=== PATIENT | male | born 1950 | race Caucasian/White ===

== ENCOUNTER 2019-11-15 13:02 | Inpatient (IN) | payer BC ==
[2019-11-15 13:14] VITALS: BMI 18.8
[2019-11-15] MEDS ORDERED: MECLIZINE HCL 25 MG TABLET (FP) PO ONE (14:18)
[2019-11-15] MEDS ORDERED: MECLIZINE HCL 12.5 MG TABLET ONE (14:24)
--- NOTE | 2019-11-15 14:31 | PDOC ---
History of Present Illness - General Chief Complaint: Chest Pain Stated Complaint: CHEST PAIN Time Seen by Provider: 11/15/19 13:32 - History of Present Illness Initial Comments: HPI Pt is a 69yo M with PMH HTN, HLD, DM, s/p L TKR who presents with chest pain and dizziness. Pt reports intermittent CP for years, with increasing episodes within the past month. Reports that episodes are triggered by emotion/stress and more recently with his knee pain. Pain is currently 3/10, intermittent episodes lasting 1 hr, non radiating, nonexertional. Improved with deep breathing and sitting. Denies taking any medications for pain relief. Reports nausea; denies vomiting, diaphoresis, SOB. Reports L hand paresthesia. Reports onset of dizziness, described as spinning, onset today. Reports past history of dizzin ess, but described as feeling different than today's episode, more like imbalance previously. States that today's dizziness is triggered by laying down and head movement to the right. Described as sudden in onset. Reports history of bladder incontinence following surgery for prostate cancer; denies any bowel incontinence. Denies f/c, SOB, abdominal pain, vomiting, bowel incontinence, back pain. Denies FHx of early MO, states mother had stroke in 60s. PCP: clinic in [place] PMH: see above PSH: knee replacement 10/2019 (done in [place]) Meds: see chart Allergies: NKDA Social: denies SARIKA Review of Systems CONSTITUTIONAL:denies fever, chills, diaphoresis, generalized weakness, malaise, loss of appetite HEENT:denies rhinorrhea, nasal congestion, sore throat, visual changes CARDIOVASCULAR:reports chest pain; denies syncope, palpitations, irregular heart rate, lightheadedness, peripheral edema RESPIRATORY:denies cough, shortness of breath, wheezing, hemoptysis GASTROINTESTINAL: reports nausea; denies abdominal pain, vomiting, diarrhea, constipation, melena, hematochezia GENITOURINARY:denies dysuria, frequency, hesitancy, hematuria, flank pain MUSCULOSKELETAL:denies myalgia, arthralgia HEMATOLOGIC/IMMUNOLOGIC:denies easy bleeding, easy bruising ENDOCRINE: denies unexplained weight gain, unexplained weight loss NEUROLOGIC: reports dizziness; denies headache, loss of consciousness, unsteady gait, mental status changes, bowel incontinence SKIN:denies rash, itching, pallor Physical Exam General: awake, alert, fully oriented, in no acute distress, well developed, well nourished Head: normocephalic, atraumatic Eyes: PERRL, EOMI, anicteric sclera, conjunctiva clear ENT: Auricles normal inspection, hearing grossly normal, oropharynx clear without exudates, no nasal congestion, moist mucous membranes Neck: supple, normal ROM Lung: equal breath sounds b/l, CTA b/l, no crackles, wheezes; no distress, speaks full sentences Heart: RRR, normal S1, S2, no murmurs appreciated Abdomen: soft, non tender, normoactive bowel sounds, no guarding, rebound, masses Extremities: limited ROM in LLE, but otherwise normal ROM, no edema, no erythema or tenderness, DP/PT pulses 2+ and symmetric, no clubbing, cyanosis Neuro: Cranial nerves: Cranial nerves II through XII are intact Motor: The upper extremities are 5/5 in all muscle groups. The lower extremities are 5/5 in upper leg, foot; 4/5 muscle strength in right lower leg. No pronator drift. Sensation: Sensation is intact to light touch throughout. Cerebellar: -dysmetria, -dysdiadochokinesia Skin: warm, dry; intact incision w/o warmth, erythema, fluctuance over left knee MDM Pt is a 69yo M with PMH HTN, HLD, DM, who presents with chest pain and dizziness. DDx including but not limited to: ACS, vertigo, PE, aortic dissection Workup: labs, cxr, ekg TX: meclizine Scores - HEART score - 5 EKG: normal sinus rhythm, HR 66bpm, WA 176ms, QRS 142ms, QTc 450ms, RBBB, T inversion in V1-V6; T wave inversion in V5-V6 not seen in previous EKG from 2016 CXR - no pneumothorax or pleural effusion. midline airway, appropriate vascular markings, no blunting of costophrenic angle, no cardiomegaly, as read by ED staff D-dimer 2649 - will order CTA Labs: electrolytes WNL, no leukocytosis, no anemia Pt reports improvement in dizziness with meclizine 11/15/19 17:[address]: No acute intracranial pathology pending CTA Pending duplex Duplex US: no DVT in either leg, 4x3x2 L popliteal fossa cyst 11/15/19 18:28 CTA: No PE - Subtle minimal to mild left lower lobe subpleural groundglass opacity is noted laterally and posteriorly - ? possible COVID-19 pneumonitis versus representing mild atelectasis. Follow-up CT may be considered. 2 mm right upper lobe and left lower lobe pulmonary nodules are seen. Correlate clinically and with 3 month follow-up CT is suggested (if prior CT exams are not available from a different facility for direct comparison). Mild left adrenal nodularity is seen probably representing either nodular hyperplasia versus subcentimeter adenomas and less likely other pathology. Biochemical evaluation is suggested as well as 3 month follow-up CT. Discussed admission with patient who agreed with plan Disposition Admit tele obs Past History - Medical History Allergies/Adverse Reactions: Allergies Allergy/AdvReac Type Severity Reaction Status Date / Time No Known Allergies Allergy Verified 11/15/19 13:07 Home Medications: Ambulatory Orders Atorvastatin Ca [Lipitor] 40 mg PO HS 11/15/19 Enalapril Maleate [Vasotec -] 5 mg PO DAILY 11/15/19 Glimepiride [Amaryl -] 4 mg PO BID 11/15/19 Sitagliptin Phos/Metformin HCl [Janumet Xr 50-1,000 mg Tablet] 1 each PO BID 11/15/19 Insulin Aspart [Novolog] 15 units TID 11/16/19 Insulin Glargine,Hum.rec.anlog [Lantus] 50 units HS 11/16/19 Meclizine HCl [Antivert -] 12.5 mg PO BID PRN 30 Days #60 tablet 11/16/19 Sildenafil Citrate [Viagra] 50 mg PO DAILY 11/16/19 COPD: No Diabetes: Yes Disorders: Yes - Psycho-Social/Smoking History Smoking History: Never smoked - Substance Abuse Hx (Audit-C & DAST Scrn) How often the patient has a drink containing alcohol: Never Score: In Men: 4 or > Positive; In Women: 3 or > Positive: 0 Screen Result (Pos requires Nsg. Audit-10AR): Negative In the last yr the pt used illegal drug/Rx for NonMed reason: No Score: Yes response is considered Positive: 0 Screen Result (Positive result requires Nsg. DAST-10): Negative *Physical Exam - Vital Signs Last Vital Signs Temp Pulse Resp BP Pulse Ox 97.8 F 87 18 140/74 97 11/15/19 13:07 11/15/19 13:07 11/15/19 13:07 11/15/19 13:07 11/15/19 14:01 Heart Score/ECG Review - History History: Slightly suspicious - Electrocardiogram EKG: Non specific repolarization disturbance - Age Age: >/= 65 - Risk Factors Risk Factors Heart Score: Yes Hx Hypercholesterolemia, Yes Hx Hypertension, Yes Hx Diabetes Based on the list above the patient has:: >/=3 risk factors or Hx atherosclerotic disease ED Treatment Course - LABORATORY CBC & Chemistry Diagram: 11/16/19 06:57 11/16/19 06:57 - RADIOLOGY Radiology Studies Ordered: Category Date Time Status CHEST X-RAY PORTABLE* [RAD] Stat Radiology 11/15/19 14:13 Ordered Discharge - Discharge Information Problems reviewed: Yes Clinical Impression/Diagnosis: Dizziness Chest pain Qualifiers: Chest pain type: unspecified Qualified Code(s): R07.9 - Chest pain, unspecified Condition: Stable - Admission Yes - Follow up/Referral - Patient Discharge Instructions - Post Discharge Activity
[2019-11-15 14:33] LABS: BASO % 0.4 % (0-2.0); EOS % 7.1 % (0-4.5); HEMATOCRIT 37.3 % (35.4-49); HEMOGLOBIN 12.7 GM/dL (11.7-16.9); LYMPH % 21.1 % (8-40); MCH 29.1 pg (25.7-33.7); MEAN CELL VOLUME 85.4 fl (80-96); MEAN PLT VOLUME 6.3 fl (7.5-11.1); NEUT % 65.4 % (42.8-82.8); PLATELET COUNT 384 K/MM3 (134-434); RBC 4.37 M/mm3 (4.00-5.60); RDW 13.7 % (11.9-15.9); WHITE BLOOD COUNT 6.4 K/mm3 (4.0-10.0)
--- NOTE | 2019-11-15 14:49 | PDOC ---
Documentation entered by Oj Mckay SCRIBE, acting as scribe for Waqas Carey MD. Waqas Carey MD: This documentation has been prepared by the Woody thornton Alexis, SCRIBE, under my direction and personally reviewed by me in its entirety. I confirm that the documentation accurately reflects all work, treatment, procedures, and medical decision making performed by me. Attending Attestation - Resident Resident Name: Bia Tipton - ED Attending Attestation I have performed the following: I have examined & evaluated the patient, The case was reviewed & discussed with the resident, I agree w/resident's findings & plan, Exceptions are as noted - HPI HPI: 11/15/19 14:58 The patient is a 69 year old male with a significant past medical history of HTN, HLD, insulin-dependent diabetes mellitus who presents to the emergency department for evaluation of dizziness that began today. The patient reports intermittent chest pain that began years ago which has been worsening for the past month and increasing in frequency. He endorses his chest pain is brought on by mental stress and his knee pain. The patient denies abdominal/back pain, cough, and shortness of breath. Denies fever, chills, nausea, vomiting, and/or any GI symptoms. Denies any symptoms. Denies any other symptoms. Allergies: NKA Social Hx: None reported. Surgical Hx: Left TKR 10/2019 PCP: Not on staff - Physicial Exam PE: 11/15/19 16:34 Vitals: Triage Vital signs reviewed General Appearance: no acute distress, well nourished well developed Neck: Supple;No Nuchal rigidity Chest Wall: Nontender Cardiac: Regular rate and rhythm, no murmurs, no rubs, no gallops, Lungs: Clear to auscultation bilateral, good air movement bilaterally, Abdomen: Soft, nondistended, normal bowel sounds, nontender to palpation Rectal: Exam deferred Extremities: Full range of motion to all extremities, no cyanosis, clubbing, or edema Skin: Warm and dry, no rashes or lesions, no petechiae Psych: normal mood, normal affect - Medical Decision Making 11/15/19 17:43 Chest pain dizzy with recent surgery + Dimer ekg with no st elevations. RBBB TWI antereoseptall unchanged from previous Trop Neg will CTA and reasses If negative for PE patient to be admitted for chest pain rule out ACS heart score 5. Heart Score/ECG Review - ECG Impressions Comment:: 11/29/19 16:41 EKG performed at team demonstrates left axis deviation sinus rhythm nonspecific T wave abnormality. Discharge - Discharge Information Problems reviewed: Yes Clinical Impression/Diagnosis: Dizziness Chest pain Qualifiers: Chest pain type: unspecified Qualified Code(s): R07.9 - Chest pain, unspecified Condition: Stable - Follow up/Referral - Patient Discharge Instructions - Post Discharge Activity
[2019-11-15 15:05] LABS: ALBUMIN 3.4 g/dl (3.4-5.0); BLOOD UREA NITROGEN 10.9 mg/dL (7-18); CALCIUM 9.2 mg/dL (8.5-10.1); CREATININE 0.7 mg/dL (0.55-1.3); POTASSIUM 4.3 mmol/L (3.5-5.1); TOT PROT 7.1 g/dl (6.4-8.2)
[2019-11-15 15:34] LABS: BILIRUBIN,TOTAL 0.4 mg/dL (0.2-1)
--- NOTE | 2019-11-15 19:51 | PN ---
Teaching Attending Note Name of Resident: Daniel Randall ATTENDING PHYSICIAN STATEMENT I saw and evaluated the patient. I reviewed the resident's note and discussed the case with the resident. I agree with the resident's findings and plan as documented. SUBJECTIVE: 69yoM with history of HTN, HLD, T2DM on insulin, and recent left total knee repl acement who presents with dizziness and worsening chronic intermittent chest pain. He has had atypical chest pain for several years for which he has followed with his PCP and cardiology, with impression that it is usually stress related. Over the past month he has had increasing episodes but is otherwise recovering well from his surgery and recently weaned off oxycodone. This morning as he was getting out of bed he felt a sudden room-spinning sensation with nausea. It gets better with time but worsens again if he looks or turns his head to the right. Denies recent fevers, illness, cough, SOB, palpitations, diaphoresis. Continues to have left knee pain and mild swelling. Ambulates with a cane and has home PT. Patient was afebrile and hemodynamically stable in the ED. Labs unremarkable wit h exception of D-dimer 2649. EKG showed RBBB and old TWI in V1-V3. CTA chest was negative for PE but showed possible left lower lobe pneumonitis vs atelectasis; CT head showed no acute findings; bilateral lower extremity ultrasound was negative for DVT, incidental finding of left popliteal cyst. Patient received meclizine with improvement and is admitted for further work up and management. OBJECTIVE: Vital Signs - 24 hr 11/15/19 11/15/19 11/15/19 13:07 14:01 14:45 Temperature 97.8 F Pulse Rate 87 Pulse Rate [ 61 Apical] Respiratory 18 18 Rate Blood Pressure 140/74 Blood Pressure 131/66 [Left Arm] O2 Sat by Pulse 99 97 98 Oximetry (%) Exam: Gen: Awake, alert, NAD HEENT: PERRL. Keeps eyes closed mostly, due to dizziness CV: RRR, no MRG appreciated Resp: Faint crackles bilateral bases, unlabored Abd: Soft, NT, ND Ext: Left knee surgical wound well-healing, mild tenderness and swelling without warmth or erythema Neuro: Patricia-Hallpike was performed by resident team; deferred repeat as patient remains symptomatic and feels unable to tolerate. No nystagmus at rest. Laboratory Results - last 24 hr 11/15/19 11/15/19 11/15/19 14:10 14:10 14:10 WBC 6.4 RBC 4.37 Hgb 12.7 Hct 37.3 MCV 85.4 MCH 29.1 MCHC 34.0 RDW 13.7 Plt Count 384 D MPV 6.3 L Absolute Neuts (auto) 4.2 Neutrophils % 65.4 Lymphocytes % 21.1 D Monocytes % 6.0 Eosinophils % 7.1 H D Basophils % 0.4 Nucleated RBC % 0 D-Dimer 2649 H Sodium 139 Potassium 4.3 Chloride 105 Carbon Dioxide 29 Anion Gap 5 L BUN 10.9 Creatinine 0.7 Est GFR (CKD-EPI)AfAm 111.60 Est GFR (CKD-EPI)NonAf 96.29 Random Glucose 156 H Calcium 9.2 Total Bilirubin 0.4 AST 13 L ALT 20 Alkaline Phosphatase 77 Troponin I 0.03 Total Protein 7.1 Albumin 3.4 EKG and imaging reviewed in chart ASSESSMENT AND PLAN: 69yoM with history of HTN, HLD, T2DM on insulin, and recent left total knee replacement who presents with worsening chronic intermittent chest pain and dizziness, most likely secondary to BPPV. Dizziness, suspected BPPV Positive Patricia-Hallpike maneuver and characteristics are consistent with BPPV Continues to be symptomatic but improved s/p meclizine - PT consult - continue meclizine PRN - outpatient vestibular rehab Intermittent chest pain Longstanding, chronic issue Troponin negative x1, EKG without acute changes, currently chest pain free Low suspicion for ACS, however given recent worsening will rule out for ACS overnight - tele, troponins - outpatient f/u s/p left TKR Had been on aspirin 650mg daily, recently decreased by his orthopedist to 325mg daily - continue outpatient PT - continue aspirin Possible LLL pneumonitis vs atelectasis Denies respiratory symptoms, vitals and exam reassuring COVID-19 testing is pending - maintain precautions, f/u COVID19 test - antibiotics deferred Chronic, stable HTN: continue ASIM HLD: continue statin T2DM on insulin: holding oral medications; ISS DVT ppx: Lovenox subq
[2019-11-15] MEDS: INSULIN SLIDING SCALE (NOVOLOG) 1 VIAL SQ SCH (22:08)
[2019-11-15] MEDS ORDERED: MECLIZINE HCL 12.5 MG TABLET PO PRN (22:08)
--- NOTE | 2019-11-15 23:29 | HP ---
CHIEF COMPLAINT: "Dizziness starting at 4am" PCP: Patient doesn't remember name except that it's a "clinic in [place]" HISTORY OF PRESENT ILLNESS: 69 year old male patient with past medical history that includes Left TKR on 10/23/2019, HTN, HLD, and IDDM, who presented to the emergency room with dizziness, nausea, and chest pain. The dizziness began at 4am. The patient also has nausea with the dizziness. Lying down and moving his head to the right makes the dizziness worse. Sitting up and breathing deeply helps make the dizziness better. Meclizine in the ED also helped make the dizziness better. The patient denies tinnitus or any feeling of ear fullness. He has not vomited, but did spit up some clear phlegm with the nausea. [place] Hallpike maneuver reproduced the dizziness, but the patient was unable to tolerate the Monique maneuver due to how dizzy and nauseous he felt. The patient's chest pain has been for years, but has gotten worse in the past month. He was examined by his search director Dr. El Patel in [place] recently for surgical clearance to do his left TKR surgery. The patient reports that his stress test was normal, but that the search director found some abnormality somewhere that made the search director "hesitant" to give permission for the surgery, but that the search director ultimately decided that it would be okay for the patient to have the surgery, so the patient had his TKR surgery on 10/23/2019. The chest pain is on the left side of his chest and is a 6/10 when it is at its worst. It comes and goes, and does not radiate. At bedside the patient said that the pain was only a 4/10. ER course was notable for: (1) ECG: NSR, HR 66bpm, MI 176ms, QRS 142ms, QTc 450ms, RBBB, T inversions in V1-V6 (2) Troponin x1 negative (3) CXR unremarkable (4) Head CT unremarkable (5) CTA: subtle minimal to mild left lower lobe subpleural ground glass opacity, 2 pulmonary nodules, mild left adrenal nodularity (6) Venous Doppler U/S: Left [id number] popliteal fossa cyst (7) D-Dimer: 2,649 (8) Meclizine 25mg with improvement in patient's symptoms Recent Travel: Denies PAST MEDICAL HISTORY: HTN, HLD, IDDM PAST SURGICAL HISTORY: Left Total Knee Replacement on 10/23/2019 (patient denies any blood thinner except for aspirin after the surgery), Surgery regarding his prostate. Social History: Smokin pack year smoking history. Stopped smoking 30 years ago. Alcohol: Denies Drugs: Denies Allergies No Known Allergies Allergy (Verified 11/15/19 13:07) HOME MEDICATIONS: Home Medications Medication Instructions Recorded Aspirin [ASA -] 325 mg PO DAILY 11/15/19 Atorvastatin Ca [Lipitor] 40 mg PO HS 11/15/19 Docusate Sodium [Colace -] 100 mg PO BID 11/15/19 Enalapril Maleate [Vasotec -] 5 mg PO DAILY 11/15/19 Ferrous Sulfate 325 mg PO TID 11/15/19 Glimepiride [Amaryl -] 4 mg PO DAILY@0700 11/15/19 Insulin Sliding Scale [Novolog 0 units SQ TIDAC 11/15/19 Vial Sliding Scale -] Sitagliptin Phos/Metformin HCl 1 each PO BID 11/15/19 [Janumet Xr 50-1,000 mg Tablet] REVIEW OF SYSTEMS CONSTITUTIONAL: Feels hot Absent: HEENT: Dizziness with sensation of spinning Absent: No sore throat, No rhinorrhea, No ear fullness, No tinnitus CARDIOVASCULAR: Chest pain Absent: RESPIRATORY: Absent: No shortness of breath, No cough, No sore throat GASTROINTESTINAL: Nausea Absent: No vomiting PHYSICAL EXAMINATION Vital Signs - 24 hr 11/15/19 11/15/19 11/15/19 13:07 14:01 14:45 Temperature 97.8 F Pulse Rate 87 Pulse Rate [ 61 Apical] Respiratory 18 18 Rate Blood Pressure 140/74 Blood Pressure 131/66 [Left Arm] O2 Sat by Pulse 99 97 98 Oximetry (%) 11/15/19 20:00 Temperature 98.3 F Pulse Rate Pulse Rate [ 80 Apical] Respiratory 18 Rate Blood Pressure Blood Pressure 128/73 [Left Arm] O2 Sat by Pulse 98 Oximetry (%) GENERAL: Awake, alert, and fully oriented, in no acute distress. HEAD: Normal with no signs of trauma. EYES: Pupils equal, round and reactive to light, extraocular movements intact. No lid lag. EARS, NOSE, THROAT: Ears normal, nares patent, oropharynx clear without exudates. Moist mucous membranes. Posterior throat nonerythematous. NECK: Normal range of motion, supple without lymphadenopathy, JVD, or masses. LUNGS: Breath sounds equal, clear to auscultation bilaterally. No wheezes, and no crackles. No accessory muscle use. HEART: Regular rate and rhythm, normal S1 and S2 without murmur, rub or gallop. ABDOMEN: Soft, nontender, not distended, normoactive bowel sounds, no guarding, no rebound, no masses. MUSCULOSKELETAL: Normal range of motion at all joints. No bony deformities or tenderness. UPPER EXTREMITIES: 2+ pulses, warm, well-perfused. No cyanosis. No clubbing. No peripheral edema. LOWER EXTREMITIES: 2+ pulses, warm, well-perfused. No calf tenderness. No peripheral edema. Surgical scar clean and nonerythmatous in left knee. NEUROLOGICAL: Cranial nerves II-XII intact. Normal speech. Muscle Strength 5/5 in upper and lower extremities. Positive Patricia Hallpike Maneuver. Patient could not tolerate Monique maneuver due to dizziness and nausea. PSYCHIATRIC: Cooperative. Good eye contact. Appropriate mood and affect. SKIN: Warm, dry, normal turgor, no rashes or lesions noted, normal capillary refill. Laboratory Results - last 24 hr 11/15/19 11/15/19 11/15/19 14:10 14:10 14:10 WBC 6.4 RBC 4.37 Hgb 12.7 Hct 37.3 MCV 85.4 MCH 29.1 MCHC 34.0 RDW 13.7 Plt Count 384 D MPV 6.3 L Absolute Neuts (auto) 4.2 Neutrophils % 65.4 Lymphocytes % 21.1 D Monocytes % 6.0 Eosinophils % 7.1 H D Basophils % 0.4 Nucleated RBC % 0 D-Dimer 2649 H Sodium 139 Potassium 4.3 Chloride 105 Carbon Dioxide 29 Anion Gap 5 L BUN 10.9 Creatinine 0.7 Est GFR (CKD-EPI)AfAm 111.60 Est GFR (CKD-EPI)NonAf 96.29 Random Glucose 156 H Calcium 9.2 Total Bilirubin 0.4 AST 13 L ALT 20 Alkaline Phosphatase 77 Troponin I 0.03 Total Protein 7.1 Albumin 3.4 ASSESSMENT/PLAN: 69 year old male patient with past medical history that includes Left TKR on 10/23/2019, HTN, HLD, and IDDM, who presented to the emergency room with dizziness, nausea, and chest pain. 1. BPPV - Positive [place] Hallpike Maneuver. - Patient could not tolerate Monique Maneuver due to dizziness and nausea. - Meclizine 12.5 BID - Outpatient f/u 2. Chest pain r/o ACS - ECG negative - Troponin negative - Heart Score of 5 - Repeat Troponin ordered 3. Pulmonary Nodules on CTA - Outpatient f/u 4. IDDM - BGM and Novolog Sliding Scale 5. HTN - Can restart home meds when clinically appropriate 6. HLD - Can restart home meds when clinically appropriate #FEN - Monitor Electrolytes. Diabetic/Sodium Diet. DVT PPx - Lovenox SQ Family Medical History Family History: As Documented Family Hx Diabetes: Father Family Hx Renal Disease: Father Family Hx Nuerologic Problems: Grandfather (paternal) (CVA), Mother (CVA and from an Aneurysm) Visit type - Medication Review Med list reviewed for High Risk Meds patients 65 and older: Yes - Emergency Visit Emergency Visit: Yes ED Registration Date: 11/15/19 Care time: The patient presented to the Emergency Department on the above date and was hospitalized for further evaluation of their emergent condition. - New Patient This patient is new to me today: Yes Date on this admission: 11/16/19 - Critical Care Critical Care patient: No ATTENDING PHYSICIAN STATEMENT I saw and evaluated the patient. I reviewed the resident's note and discussed the case with the resident. I agree with the resident's findings and plan as documented. SUBJECTIVE: OBJECTIVE: ASSESSMENT AND PLAN:
[2019-11-16] MEDS ORDERED: ACETAMINOPHEN 325 MG TABLET (FP) PO ONE (02:16)
[2019-11-16] MEDS: INSULIN SLIDING SCALE (NOVOLOG) 1 VIAL SQ SCH ×2 (06:40→11:37)
[2019-11-16 08:20] LABS: BASO % 0.4 % (0-2.0); EOS % 12.6 % (0-4.5); HEMATOCRIT 35.6 % (35.4-49); HEMOGLOBIN 12.3 GM/dL (11.7-16.9); LYMPH % 28.6 % (8-40); MCH 29.2 pg (25.7-33.7); MCHC 34.5 g/dl (32.0-35.9); MEAN CELL VOLUME 84.7 fl (80-96); MEAN PLT VOLUME 6.8 fl (7.5-11.1); NEUT % 51.4 % (42.8-82.8); PLATELET COUNT 379 K/MM3 (134-434)
[2019-11-16 08:22] LABS: ALBUMIN 3.2 g/dl (3.4-5.0); BLOOD UREA NITROGEN 11.6 mg/dL (7-18); CALCIUM 9.4 mg/dL (8.5-10.1); MAGNESIUM 2.1 mg/dL (1.8-2.4); POTASSIUM 4.3 mmol/L (3.5-5.1)
[2019-11-16 08:25] LABS: BILIRUBIN,TOTAL 0.6 mg/dL (0.2-1); CREATININE 0.7 mg/dL (0.55-1.3); PHOSPHOROUS 4.6 mg/dL (2.5-4.9); TOT PROT 6.8 g/dl (6.4-8.2)
[2019-11-16] MEDS ORDERED: ENOXAPARIN NA (PORCINE) 40 MG/0.4 ML DISP.SYRIN SQ SCH (10:00)
[2019-11-16 10:02] VITALS: TEMP 97.9
--- NOTE | 2019-11-16 10:54 | EKG ---
Test Reason : Blood Pressure : / mmHG Vent. Rate : 066 BPM Atrial Rate : 066 BPM P-R Int : 176 ms QRS Dur : 142 ms QT Int : 430 ms P-R-T Axes : 009 -54 -25 degrees QTc Int : 450 ms NORMAL SINUS RHYTHM LEFT AXIS DEVIATION RIGHT BUNDLE BRANCH BLOCK NONSPECIFIC T WAVE ABNORMALITY ABNORMAL ECG WHEN COMPARED WITH ECG OF 27-JAN-2016 15:40, T WAVE INVERSION NOW EVIDENT IN LATERAL LEADS Confirmed by EMELINA CASEY MD ([id number]) on 11/16/2019 10:54:26 AM Referred By: Confirmed By:EMELINA CASEY MD
--- NOTE | 2019-11-16 12:59 | PN ---
Teaching Attending Note Name of Resident: Gagandeep Mejias ATTENDING PHYSICIAN STATEMENT I saw and evaluated the patient. I reviewed the resident's note and discussed the case with the resident. I agree with the resident's findings and plan as documented. SUBJECTIVE: Patient reports improvement in his symptoms OBJECTIVE: Vital Signs Period Temp Pulse Resp BP Sys/[place] Pulse Ox Last 24 Hr 97.5 F-98.3 F 58-87 18-20 128-142/58-74 95-99 Supervised Physical Exam completed by resident during rounds Please see resident note ASSESSMENT AND PLAN: 69yoM with history of HTN, HLD, T2DM on insulin, and recent left total knee replacement who presents with dizziness Dizziness: 2/2 BPPV Improved after Eplys maneauver Will have PT eval Continue meclazine Elevated D Dimer with CT scan findings suggestive of COVID Patient without any changes in smell/taste COVID swab Pending No signs of Leukocytopenia No GI Disturbance No Shortness of breath D dimer can be elevated in setting of recent procedure Hold off on sending additional inflammatory work up, patient advised to return to the ED if he starts having any shortness of breath Chest Pain Resolved Troponins negative, ACS ruled out Rest of plan as per resident note Plan to discharge home after PT evaluation
--- NOTE | 2019-11-16 13:41 | DS ---
Physical Exam: SUBJECTIVE: Patient seen and examined this morning, states he is feeling much better, Patricia and Monique performed with success and patient stated he is no longer dizzy. Denies any CP, SoB, Changes in vision, tinnitus, hearing loss, or ear fullness. OBJECTIVE: Vital Signs Period Temp Pulse Resp BP Sys/Coretz Pulse Ox Last 24 Hr 97.5 F-98.3 F 58-80 18-20 128-142/58-74 95-98 PHYSICAL EXAM GENERAL: The patient is awake, alert, and fully oriented, in no acute distress. HEAD: Normal with no signs of trauma. EYES: PERRL, extraocular movements intact, sclera anicteric, conjunctiva clear. ENT: Ears normal, nares patent, oropharynx clear without exudates, moist mucous membranes. NECK: Trachea midline, full range of motion, supple. LUNGS: Breath sounds equal, clear to auscultation bilaterally, no wheezes, no crackles, no accessory muscle use. HEART: Regular rate and rhythm, S1, S2 without murmur, rub or gallop. ABDOMEN: Soft, nontender, nondistended, normoactive bowel sounds, no guarding, no rebound, no hepatosplenomegaly, no masses. EXTREMITIES: 2+ pulses, warm, well-perfused, no edema. NEUROLOGICAL: Cranial nerves II through XII grossly intact. Normal speech, gait not observed. PSYCH: Normal mood, normal affect. SKIN: Warm, dry, normal turgor, no rashes or lesions noted. LABS Laboratory Results - last 24 hr 11/15/19 11/15/19 11/15/19 14:10 14:10 14:10 WBC 6.4 RBC 4.37 Hgb 12.7 Hct 37.3 MCV 85.4 MCH 29.1 MCHC 34.0 RDW 13.7 Plt Count 384 D MPV 6.3 L Absolute Neuts (auto) 4.2 Neutrophils % 65.4 Lymphocytes % 21.1 D Monocytes % 6.0 Eosinophils % 7.1 H D Basophils % 0.4 Nucleated RBC % 0 D-Dimer 2649 H Sodium 139 Potassium 4.3 Chloride 105 Carbon Dioxide 29 Anion Gap 5 L BUN 10.9 Creatinine 0.7 Est GFR (CKD-EPI)AfAm 111.60 Est GFR (CKD-EPI)NonAf 96.29 POC Glucometer Random Glucose 156 H Calcium 9.2 Phosphorus Magnesium Total Bilirubin 0.4 AST 13 L ALT 20 Alkaline Phosphatase 77 Troponin I 0.03 Total Protein 7.1 Albumin 3.4 COVID-19 (DA[facility]) 11/15/19 11/16/19 11/16/19 19:00 01:45 06:39 WBC RBC Hgb Hct MCV MCH MCHC RDW Plt Count MPV Absolute Neuts (auto) Neutrophils % Lymphocytes % Monocytes % Eosinophils % Basophils % Nucleated RBC % D-Dimer Sodium Potassium Chloride Carbon Dioxide Anion Gap BUN Creatinine Est GFR (CKD-EPI)AfAm Est GFR (CKD-EPI)NonAf POC Glucometer 127 Random Glucose Calcium Phosphorus Magnesium Total Bilirubin AST ALT Alkaline Phosphatase Troponin I 0.03 Total Protein Albumin COVID-19 ([facility]) Not detected 11/16/19 11/16/19 11/16/19 06:57 06:57 11:31 WBC 7.0 RBC 4.20 Hgb 12.3 Hct 35.6 MCV 84.7 MCH 29.2 MCHC 34.5 RDW 14.0 Plt Count 379 MPV 6.8 L Absolute Neuts (auto) 3.6 Neutrophils % 51.4 D Lymphocytes % 28.6 D Monocytes % 7.0 Eosinophils % 12.6 H Basophils % 0.4 Nucleated RBC % 0 D-Dimer Sodium 139 Potassium 4.3 Chloride 104 Carbon Dioxide 27 Anion Gap 8 BUN 11.6 Creatinine 0.7 Est GFR (CKD-EPI)AfAm 111.60 Est GFR (CKD-EPI)NonAf 96.29 POC Glucometer 183 Random Glucose 115 H Calcium 9.4 Phosphorus 4.6 Magnesium 2.1 Total Bilirubin 0.6 AST 15 ALT 21 Alkaline Phosphatase 64 Troponin I Total Protein 6.8 Albumin 3.2 L COVID-19 ([facility]) HOSPITAL COURSE: Date of Admission:11/15/19 (1) ECG: NSR, HR 66bpm, NV 176ms, QRS 142ms, QTc 450ms, RBBB, T inversions in V1-V6 (2) Troponin x1 negative (3) CXR unremarkable (4) Head CT unremarkable (5) CTA: subtle minimal to mild left lower lobe subpleural ground glass opacity, 2 pulmonary nodules, mild left adrenal nodularity (6) Venous Doppler U/S: Left [id number] popliteal fossa cyst Date of Discharge: 11/16/19 69 yo M w/ PMHx of Left TKR on 10/23/2019, HTN, HLD, and IDDM, who presented to the emergency room with dizziness, nausea, and chest pain. Ptn states that he was laying in bed when he woke up and started to feel dizzy as if the room were spinning with acompanied nausea. He endorsed that laying down made the dizziness worse while sitting up aleviated the symptoms. Meclizine 25mg was given in the ED and the patient responded well. The ED/Primary team performed the Patricia Hallpike maneuver which reproduced the dizziness, however at the time the patient was unable to tolerate the Monique maneuver. The patient endorsed L sided chest pain rated as 6/10 and has been a chronic issue. He had been recently evaluated by his Biomedical Electronics Technician El Patel prior to his TKR and was cleared for surgery. Prior to moving to the floors, chest pain had decreased in intensity. Patient was admitted to the floors, at which point Meclizine was continued and [place] Halpike and Monique maneuvers were repeated. Ptn was able to tolerate Monique and endorsed improvement/resolution of his symptoms. At the time of discharge patient was deemed medically stable for discharge and follow up with outpatient providers for further management. Minutes to complete discharge: 36 Discharge Summary Problems reviewed: Yes Reason For Visit: BPPV Condition: Stable - Instructions Diet, Activity, Other Instructions: Summary : You were admitted to the hospital for chest pain and dizziness. You were found to have a condition called Benign Paroxysmal Positional Vertigo, which is what is likely causing . You were treated with physical rehabilitation and medicine with improvement of your symptoms. Medications changes: -Please start taking Meclizine 25mg two times a day as needed for dizziness. -Continue to take all other home medications as prescribed. Follow up: - Please follow-up with Dr. Michi Sawyer (ENT) in 1 -2 weeks for evaluation of your dizziness - Please follow up with Dr. Yohannes Staton, your Primary Care Provider in 2 weeks. - Please follow up with Dr. El Patel, your Biomedical Electronics Technician in 2 weeks Additional Instructions: -You are being discharged to your home. -Please return to the Emergency Department if you experience worsening pain, fevers, chills, shortness of breath, or chest pain, or if you experience any worsening, new or concerning symptoms. Referrals: Grady Sawyer MD [Staff Physician] - 2 Weeks El Patel [Non Staff, Medical] - 2 Weeks oYhannes Staton MD [Primary Care Provider] - 2 Weeks Disposition: HOME - Home Medications Comprehensive Discharge Medication List: Ambulatory Orders Atorvastatin Ca [Lipitor] 40 mg PO HS 11/15/19 Enalapril Maleate [Vasotec -] 5 mg PO DAILY 11/15/19 Glimepiride [Amaryl -] 4 mg PO BID 11/15/19 Sitagliptin Phos/Metformin HCl [Janumet Xr 50-1,000 mg Tablet] 1 each PO BID 11/15/19 Insulin Aspart [Novolog] 15 units TID 11/16/19 Insulin Glargine,Hum.rec.anlog [Lantus] 50 units HS 11/16/19 Meclizine HCl [Antivert -] 12.5 mg PO BID PRN 30 Days #60 tablet 11/16/19 Sildenafil Citrate [Viagra] 50 mg PO DAILY 11/16/19 This patient is new to me today: Yes Date on this admission: 11/16/19 Emergency Visit: No Critical Care patient: No - Discharge Referral Referred to [facility] No ATTENDING PHYSICIAN STATEMENT I saw and evaluated the patient. I reviewed the resident's note and discussed the case with the resident. I agree with the resident's findings and plan as documented. SUBJECTIVE: OBJECTIVE: ASSESSMENT AND PLAN:
[2019-11-16 14:43] VITALS: BP 122/63; PULSE 63
== END 2019-11-16 18:01 | disposition home or self-care (01) | DRG 149 ==
LOC: JER 13:02 → JERBED 19:37 → J4S 20:47
PROVIDERS: ADMIT Hospitalist; ATTEND Internal Medicine
DX: H81.10 Benign paroxysmal vertigo, unspecified ear (principal); I10 Essential (primary) hypertension; E78.5 Hyperlipidemia, unspecified; E11.9 Type 2 diabetes mellitus without complications; Z79.4 Long term (current) use of insulin; I45.10 Unspecified right bundle-branch block; R07.9 Chest pain, unspecified; R91.1 Solitary pulmonary nodule; M71.22 Synovial cyst of popliteal space [Baker], left knee
CPT/HCPCS: 36415; 70450-TC; 71045-TC-FY; 71275-TC; 80053; 82962; 83735; 84100; 84484; 85025; 85379; 87081; 93005; 93010; 93970-TC; 97116-GP; 97161-GP; 99285-25; Q9967; U0003

== ENCOUNTER 2020-05-13 10:25 | Emergency (ER) | payer SELFPAY | END 2020-05-13 12:33 | disposition home or self-care (01) | LOC: JVIRT 10:25 | DX: U07.1 COVID-19 (principal) | CPT/HCPCS: C9803; G2251-GT; U0003 ==